=== PATIENT | female | born 1975 | race Caucasian/White ===

== ENCOUNTER 2021-07-03 15:28 | Emergency (ER) | payer OTHER ==
[~2021-07-03] VITALS: Ht 162.6 cm; Wt 85.7 kg
[2021-07-03 15:50] LABS: URINE BILIRUBIN NEGATIVE (Negative); URINE BLOOD NEGATIVE (Negative); URINE COLOR YELLOW; URINE GLUCOSE-RANDOM NEGATIVE (Negative); URINE KETONES NEGATIVE (Negative); URINE LEUKOCYTES-REFLEX 1+ (Negative); URINE NITRITE-REFLEX NEGATIVE (Negative); URINE PROTEIN NEGATIVE (Negative); URINE UROBILINOGEN 0.2 E.U./dl (0.2-1.0)
[2021-07-03 15:57] LABS: URINE CLARITY CLOUDY
[2021-07-03 15:58] LABS: AMP/METHAMP Negative (Negative); BARBITURATES Negative (Negative); BENZODIAZEPINES POSITIVE (Negative); COCAINE Negative (Negative); METHADONE Negative (Negative); OPIATES Negative (Negative); PCP Negative (Negative); THC POSITIVE (Negative)
--- NOTE | 2021-07-03 15:59 | EKG ---
[place] [address] ELECTROCARDIOGRAM REPORT Name: FILOMENA MORSE Room: [facility]#: [id number] Admission: 07/03/21 Attend Phys: Discharge: Date of : 75 Date of Service: 07/03/21 1549 Report #: [id number] THIS REPORT FOR: //name// [facility] ED Test Date: 2021-07-03 Test Time: 15:49:15 Pat Name: FILOMENA MORSE Department: Room: Gender: F [employer]: : 1975 Requested By: Ling Marina Order Number: [id number] MD: Rangel Santana Measurements Intervals Murray Rate: 84 P: 17 OR: 158 QRS: 22 QRSD: 81 T: 4 QT: 393 QTc: 465 Interpretive Statements Sinus rhythm RsR' in lead V1 Low voltage, precordial leads Borderline T abnormalities, anterior leads No previous ECG available for comparison Electronically Signed On 07-03-2021 15:59:36 CDT by Rangel Santana [email or web address] <ELECTRONICALLY SIGNED> By: Rangel Santana MD, [facility] 07/03/21 1559 1549 1549 Rangel Santana MD, [facility] /EPI
[2021-07-03 16:07] LABS: CASTS None Seen /LPF (None Seen); CRYSTALS None Seen /LPF (None Seen); SQUAMOUS >10 Many /LPF (0-3); URINE RBC None Seen /HPF (0-2); URINE WBC-REFLEX 6-15 Few /HPF (0-5)
[2021-07-03 16:08] LABS: CALCIUM 9.4 mg/dL (8.5-10.1); CREATININE 1.2 mg/dL (0.6-1.3); POTASSIUM 3.8 mmol/L (3.5-5.1)
[2021-07-03 16:13] LABS: ALBUMIN 3.7 g/dL (3.4-5.0); TOTAL BILIRUBIN 0.3 mg/dL (<0.1-1.0); TOTAL PROTEIN 6.9 g/dL (6.4-8.2)
[2021-07-03 16:18] LABS: ABSOLUTE BASOPHILS 0.1 thou/uL (0.0-0.2); ABSOLUTE NEUTROPHILS 3.5 thou/uL (1.6-8.1); BASOPHILS 1.1 %; HEMATOCRIT 34.2 % (37.0-47.0); HEMOGLOBIN 11.2 gm/dL (12.0-15.0); MCH 28.5 pg (26.0-34.0); MCHC 32.8 g/dL (28.0-37.0)
[2021-07-03 16:20] LABS: ABSOLUTE EOSINOPHILS 0.3 thou/uL (0.0-0.7); ABSOLUTE LYMPHOCYTES 2.3 thou/uL (0.8-5.3); ABSOLUTE MONOCYTES 0.5 thou/uL (0.0-1.2); EOSINOPHILS 5.2 %; LYMPHOCYTES 34.8 %; MONOCYTES 7.4 %; MPV 7.9 fl. (7.2-11.1); NUCLEATED RBCS 0 /100WBC; PLATELET COUNT* 203 thou/uL (150-400); POLYS 51.5 %; RBC 3.93 mil/uL (4.20-5.00); WBC 6.7 thou/uL (4.0-11.0)
[2021-07-03] MEDS ORDERED: ELIQUIS5 MG PO (16:49)
[2021-07-03] MEDS ORDERED: HUMIRA(CF)80 MG/0.8 SUBQ (16:50)
[2021-07-03] MEDS ORDERED: DICYCLOMINE HCL20 MG PO (17:14)
[2021-07-03] MEDS ORDERED: XARELTO20 MG PO (17:41)
[2021-07-03] MEDS ORDERED: GABAPENTIN800 M1 PO (17:42)
[2021-07-03] MEDS ORDERED: TOPAMAX50 MG PO (17:43)
[2021-07-03] MEDS ORDERED: NOVOLOG FL100 UNIT/M SUBQ (17:43)
[2021-07-03] MEDS ORDERED: LANTUS SUBQ (17:43)
[2021-07-03] MEDS ORDERED: KLONOPIN1 MG PO (17:44)
[2021-07-03] MEDS ORDERED: LUNESTA3 MG PO (17:44)
[2021-07-03] MEDS ORDERED: ZOCOR40 MG PO (17:44)
[2021-07-03 18:23] VITALS: BP 105/60
== END 2021-07-03 18:24 | disposition left against medical advice (07) ==
LOC: M.ERS 15:28
PROVIDERS: Nurse Practitioner Family
DX: R10.32 Left lower quadrant pain (principal); Z72.89 Other problems related to lifestyle; Z79.4 Long term (current) use of insulin; Z79.899 Other long term (current) drug therapy; Z88.1 Allergy status to other antibiotic agents; Z88.6 Allergy status to analgesic agent; Z88.9 Allergy status to unspecified drugs, medicaments and biological substances; Z91.041 Radiographic dye allergy status